=== PATIENT | male | born 1980 | race Asian ===

== ENCOUNTER 2018-08-02 23:55 | Emergency (ER) | payer MEDICAID ==
[~2018-08-02 23:55] MED LIST: ATIVAN1 MG PO; CARAFATE1 GM/10 ML PO; LORAZEPAM 0.50.5 MG PO; ONDANSETRON HCL4 M2 PO; PRILOSEC 20 MG20 MG PO; RANITIDINE 150150 M1 PO; TRAZODONE HCL100 MG PO; VITAMIN B-1100 M1 PO
[2018-08-03 00:35] LABS: ABSOLUTE BASOPHILS 0.1 thou/uL (0.0-0.2); ABSOLUTE EOSINOPHILS 0.1 thou/uL (0.0-0.7); ABSOLUTE LYMPHOCYTES 2.6 thou/uL (0.8-5.3); ABSOLUTE MONOCYTES 0.5 thou/uL (0.0-1.2); ABSOLUTE NEUTROPHILS 2.8 thou/uL (1.6-8.1); BASOPHILS 1.3 %; EOSINOPHILS 1.9 %; HEMATOCRIT 38.6 % (42.0-52.0); HEMOGLOBIN 13.1 gm/dL (14.0-18.0); LYMPHOCYTES 42.4 %; MCH 32.1 pg (26.0-34.0); MCHC 33.9 g/dL (28.0-37.0); MCV 94.7 fL (80.0-100.0); MONOCYTES 8.5 %; MPV 8.8 fl. (7.2-11.1); NUCLEATED RBCS 0 /100WBC; PLATELET COUNT* 270 thou/uL (150-400); POLYS 45.9 %; RBC 4.07 mil/uL (4.50-6.00); RDW-CV 17.2 % (10.5-14.5); WBC 6.1 thou/uL (4.0-11.0)
[2018-08-03 00:44] LABS: CALCIUM 8.2 mg/dL (8.5-10.1); CREATININE 0.4 mg/dL (0.6-1.3); POTASSIUM 5.3 mmol/L (3.5-5.1)
[2018-08-03 00:49] LABS: ALBUMIN 3.6 g/dL (3.4-5.0); TOTAL BILIRUBIN 0.3 mg/dL (<0.1-1.0); TOTAL PROTEIN 8.1 g/dL (6.4-8.2)
[2018-08-03 00:50] LABS: SALICYLATE 3.1 mg/dL (2.8-20.0)
[2018-08-03 00:52] LABS: ACETAMINOPHEN < 2 ug/mL (10-30)
[2018-08-03 00:53] LABS: ALCOHOL 426 mg/dL (<10)
[2018-08-03 05:30] LABS: URINE BILIRUBIN NEGATIVE (Negative); URINE BLOOD NEGATIVE (Negative); URINE CLARITY CLEAR; URINE COLOR YELLOW; URINE GLUCOSE-RANDOM NEGATIVE (Negative); URINE KETONES NEGATIVE (Negative); URINE LEUKOCYTES-REFLEX NEGATIVE (Negative); URINE NITRITE-REFLEX NEGATIVE (Negative); URINE PROTEIN NEGATIVE (Negative); URINE SPECIFIC GRAVITY <= 1.005 (1.005-1.030); URINE UROBILINOGEN 0.2 E.U./dl (0.2-1.0)
[2018-08-03 05:45] LABS: AMP/METHAMP Negative (Negative); BARBITURATES Negative (Negative); BENZODIAZEPINES POSITIVE (Negative); COCAINE Negative (Negative); METHADONE Negative (Negative); OPIATES Negative (Negative); PCP Negative (Negative); THC Negative (Negative)
[2018-08-03 09:59] VITALS: BP 102/63
== END 2018-08-03 10:06 | disposition home or self-care (01) ==
LOC: M.ERS 23:55
PROVIDERS: Emergency Medicine
DX: F10.129 Alcohol abuse with intoxication, unspecified (principal); Y90.8 Blood alcohol level of 240 mg/100 ml or more; M79.642 Pain in left hand; Z79.899 Other long term (current) drug therapy

== ENCOUNTER 2020-08-26 21:07 | Inpatient (IN) | payer MEDICAID ==
[~2020-08-26] VITALS: Ht 165.1 cm; Wt 67.3 kg
[2020-08-26 21:08] VITALS: BP 89/42
[2020-08-26 21:38] LABS: ABSOLUTE EOSINOPHILS 0.1 thou/uL (0.0-0.7); ABSOLUTE LYMPHOCYTES 0.4 thou/uL (0.8-5.3); ABSOLUTE MONOCYTES 0.9 thou/uL (0.0-1.2); ABSOLUTE NEUTROPHILS 3.2 thou/uL (1.6-8.1); BASOPHILS 0.7 %; HEMATOCRIT 29.5 % (42.0-52.0); LYMPHOCYTES 9.3 %; MCH 30.8 pg (26.0-34.0); MCHC 34.1 g/dL (28.0-37.0); MCV 90.5 fL (80.0-100.0); MONOCYTES 18.5 %; MPV 6.7 fl. (7.2-11.1); NUCLEATED RBCS 0 /100WBC; PLATELET COUNT* 297 thou/uL (150-400); POLYS 68.5 %; RBC 3.26 mil/uL (4.50-6.00); RDW-CV 14.7 % (10.5-14.5); WBC 4.6 thou/uL (4.0-11.0)
[2020-08-26 21:45] LABS: CALCIUM 8.2 mg/dL (8.5-10.1); CREATININE 0.7 mg/dL (0.6-1.3); POTASSIUM 3.4 mmol/L (3.5-5.1)
[2020-08-26 21:56] LABS: ALBUMIN 3.4 g/dL (3.4-5.0); TOTAL BILIRUBIN 0.2 mg/dL (<0.1-1.0); TOTAL PROTEIN 7.1 g/dL (6.4-8.2)
[2020-08-27] VITALS (7 sets, daily range): BP systolic 89–112; BP diastolic 51–79
[2020-08-27 04:00] LABS: URINE BILIRUBIN NEGATIVE (Negative); URINE BLOOD NEGATIVE (Negative); URINE CLARITY CLEAR; URINE COLOR YELLOW; URINE GLUCOSE-RANDOM NEGATIVE (Negative); URINE KETONES NEGATIVE (Negative); URINE LEUKOCYTES-REFLEX NEGATIVE (Negative); URINE NITRITE-REFLEX NEGATIVE (Negative); URINE PROTEIN NEGATIVE (Negative); URINE UROBILINOGEN 0.2 E.U./dl (0.2-1.0)
--- NOTE | 2020-08-27 09:37 | EKG ---
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 : 1980 Requested By: Girma Gonzalez Order Number: [id number] MD: Bret Meier Measurements Intervals [place] Rate: 79 P: 9 [place]: 156 QRS: 1 QRSD: 103 T: 24 QT: 378 QTc: 434 Interpretive Statements Sinus rhythm Diffuse ST segment elevation, consider pericarditis Compared to ECG 08/14/2017 11:20:31 ST (T wave) deviation now present Sinus tachycardia no longer present Electronically Signed On 08-27-2020 9:37:05 HYPERION ANALYST by Bret Meier [email or web address] <ELECTRONICALLY SIGNED> By: Bret Meier MD, FACC 08/27/20936 19 19 Bret Meier MD, FACC /EPI
[2020-08-27 10:10] LABS: HEMATOCRIT 33.3 % (42.0-52.0); HEMOGLOBIN 11.2 gm/dL (14.0-18.0); MCH 30.6 pg (26.0-34.0); MCHC 33.6 g/dL (28.0-37.0); MPV 6.9 fl. (7.2-11.1); RBC 3.66 mil/uL (4.50-6.00); WBC 7.4 thou/uL (4.0-11.0)
[2020-08-27 10:19] LABS: CALCIUM 8.7 mg/dL (8.5-10.1); CREATININE 0.6 mg/dL (0.6-1.3); POTASSIUM 4.9 mmol/L (3.5-5.1)
--- NOTE | 2020-08-27 12:10 | NUR ---
ER ADMIT TO 224 TELEPHONE REPORT GIVEN PRIOR TO ARRIVAL PATIENT TO BED SBA DENIES PAIN INSTRUCTED TO CALL FOR ASSISTANCE AND SHOWN HOW TO USE CALL LIGHT
[2020-08-27] MEDS ORDERED: NEURONTIN100 MG PO (13:36)
[2020-08-27] MEDS ORDERED: SERTRALINE HCL100 MG PO (13:37)
[2020-08-27 21:34] LABS: CALCIUM 8.7 mg/dL (8.5-10.1); CREATININE 0.8 mg/dL (0.6-1.3); POTASSIUM 4.1 mmol/L (3.5-5.1)
[2020-08-28] VITALS: BP 117/78
--- NOTE | 2020-08-28 02:01 | NUR ---
PATIENT ALERT, SOMEWHAT ANXIOUS AND ORIENTED X 4. USING URINAL AT BEDSIDE WITH LARGE RETURN. EATING SOFT SNACKS WITHOUT ISSUE AND FLUIDS WITHOUT PROBLEM. WAS SO HAPPY TO HAVE HOME MEDS STARTED AND THEN STATES HE TAKES SEROQUEL WELL. UNABLE TO CONFIRM THIS. PLAN OF CARE WITH RECONCILE MEDS AGAIN IN AM WITH PHYSICIAN. TYLENOL FOR HEADACHE AND BENADRYL FOR SLEEP. IV ATIVAN X 2 FOR ANXIETY OF THIS WRITING. STAT LAB THIS EVENING WITH SODIUM NOW 140. VITAL SIGNS STABLE. ON ROOM AIR. NEW IVF'S INITIATED VIA RIGHT PORT. CONTINUE TO MONITOR.
[2020-08-28 04:00] VITALS: BP 120/80
[2020-08-28 05:42] LABS: HEMOGLOBIN 9.4 gm/dL (14.0-18.0); MCH 30.7 pg (26.0-34.0); MCHC 33.5 g/dL (28.0-37.0); MCV 91.7 fL (80.0-100.0); MPV 7.5 fl. (7.2-11.1); RBC 3.06 mil/uL (4.50-6.00); RDW-CV 14.9 % (10.5-14.5); WBC 6.7 thou/uL (4.0-11.0)
[2020-08-28 06:05] LABS: ALBUMIN 3.1 g/dL (3.4-5.0); CALCIUM 8.3 mg/dL (8.5-10.1); CREATININE 0.8 mg/dL (0.6-1.3); MAGNESIUM 2.1 mg/dL (1.8-2.4); POTASSIUM 3.6 mmol/L (3.5-5.1); TOTAL BILIRUBIN 0.3 mg/dL (<0.1-1.0); TOTAL PROTEIN 6.6 g/dL (6.4-8.2)
--- NOTE | 2020-08-28 06:20 | NUR ---
LORAZEPAM PROVIDED A THIRD TIME FOR THE SHIFT. NO OTHER CHANGES FROM EARLIER ENTRY. CONTINUE TO MONITOR.
[2020-08-28 08:45] VITALS: BP 127/77
--- NOTE | 2020-08-28 11:37 | NUR ---
PT A/OX4, CIWA 3. DENIES PAIN, SOA, AND ANY OTHER DISCOMFORT. PT STATES "I UNDERSTAND WHY I WAS ADMITTED. BUT I'M NOT SICK SO I'D RATHER LEAVE." DR SANCHEZ WAS NOTIFIED OF PTS REQUEST, SAW PT AT BEDSIDE. PT MAINTAINED HIS DESIRE TO LEAVE. DR SANCHEZ EXPLAINED HER PREFERENCE THAT HE STAY ANOTHER NIGHT, PT DECLINED. DR SANCHEZ STATED PT MAY LEAVE AMA BUT SHE WAS NOT COMFORTABLE MEDICALLY DISCHARGING HIM DUE TO HIS ATIVAN NEEDS OVER THE LAST 24 HOURS. PT SIGNED AMA DISCHARGE FORM AFTER THIS RN EXPLAINED RISKS OF LEAVING AMA AND BENEFITS OF STAYING. R CHEST PORT-A-CATH DEACCESSED AND DRESSED. TELE MONITOR RETURNED TO NURSING STATION. ALL PERSONAL BELONGINGS ACCOUNTED FOR PER PT. PT ESCORTED TO EXIT ON FOOT BY ENVIRONMENTAL PROGRAMS SPECIALIST.
[2020-08-29] MEDS ORDERED: SEROQUEL 100 M100 M1 PO ×2 (15:18→15:19)
[2020-08-29] MEDS ORDERED: GABAPENTIN600 M1 PO (15:20)
== END 2020-08-28 11:30 | disposition left against medical advice (07) | DRG 640 ==
LOC: M.ERS 21:07 → M.TBA-ER 23:26 → M.2W 08-27 12:10
PROVIDERS: Emergency Medicine Emergency Medical Services; Internal Medicine; ADMIT Internal Medicine; ATTEND Internal Medicine
DX: E87.1 Hypo-osmolality and hyponatremia (principal); G92 Toxic encephalopathy; F10.129 Alcohol abuse with intoxication, unspecified; Y90.9 Presence of alcohol in blood, level not specified; Z20.828 Contact with and (suspected) exposure to other viral communicable diseases; Z87.891 Personal history of nicotine dependence; Z28.21 Immunization not carried out because of patient refusal

== ENCOUNTER 2020-08-28 18:39 | Inpatient (IN) | payer MEDICAID ==
[~2020-08-28] VITALS: Ht 170.2 cm; Wt 66.5 kg
[~2020-08-28 18:39] MED LIST changes: +NEURONTIN100 MG PO; +SERTRALINE HCL100 MG PO
[2020-08-28 19:55] VITALS: BP 105/76
[2020-08-28 20:49] LABS: URINE BILIRUBIN NEGATIVE (Negative); URINE BLOOD NEGATIVE (Negative); URINE CLARITY CLEAR; URINE COLOR YELLOW; URINE GLUCOSE-RANDOM NEGATIVE (Negative); URINE KETONES NEGATIVE (Negative); URINE LEUKOCYTES-REFLEX NEGATIVE (Negative); URINE NITRITE-REFLEX NEGATIVE (Negative); URINE PROTEIN NEGATIVE (Negative); URINE UROBILINOGEN 0.2 E.U./dl (0.2-1.0)
[2020-08-28 21:38] LABS: ABSOLUTE EOSINOPHILS 0.2 thou/uL (0.0-0.7); ABSOLUTE LYMPHOCYTES 0.8 thou/uL (0.8-5.3); ABSOLUTE MONOCYTES 0.8 thou/uL (0.0-1.2); ABSOLUTE NEUTROPHILS 4.6 thou/uL (1.6-8.1); BASOPHILS 0.7 %; EOSINOPHILS 2.5 %; HEMATOCRIT 25.3 % (42.0-52.0); HEMOGLOBIN 8.6 gm/dL (14.0-18.0); LYMPHOCYTES 11.8 %; MCH 31.2 pg (26.0-34.0); MCHC 34.1 g/dL (28.0-37.0); MCV 91.5 fL (80.0-100.0); MONOCYTES 12.3 %; MPV 6.7 fl. (7.2-11.1); NUCLEATED RBCS 0 /100WBC; PLATELET COUNT* 258 thou/uL (150-400); POLYS 72.7 %; RBC 2.77 mil/uL (4.50-6.00); RDW-CV 14.7 % (10.5-14.5); WBC 6.4 thou/uL (4.0-11.0)
[2020-08-28 21:50] LABS: CALCIUM 7.8 mg/dL (8.5-10.1); CREATININE 0.6 mg/dL (0.6-1.3); POTASSIUM 3.2 mmol/L (3.5-5.1); TOTAL BILIRUBIN 0.3 mg/dL (<0.1-1.0); TOTAL PROTEIN 6.4 g/dL (6.4-8.2)
[2020-08-28 22:26] LABS: AMP/METHAMP Negative (Negative); BARBITURATES Negative (Negative); BENZODIAZEPINES POSITIVE (Negative); COCAINE Negative (Negative); METHADONE Negative (Negative); OPIATES Negative (Negative); PCP Negative (Negative); THC POSITIVE (Negative)
[2020-08-29] VITALS (8 sets, daily range): BP systolic 100–123; BP diastolic 62–85
[2020-08-29 03:52] LABS: ABSOLUTE EOSINOPHILS 0.2 thou/uL (0.0-0.7); ABSOLUTE LYMPHOCYTES 0.5 thou/uL (0.8-5.3); ABSOLUTE MONOCYTES 0.6 thou/uL (0.0-1.2); ABSOLUTE NEUTROPHILS 2.5 thou/uL (1.6-8.1); EOSINOPHILS 5.4 %; HEMATOCRIT 25.4 % (42.0-52.0); HEMOGLOBIN 8.6 gm/dL (14.0-18.0); LYMPHOCYTES 13.8 %; MCH 30.6 pg (26.0-34.0); MCHC 33.7 g/dL (28.0-37.0); MONOCYTES 14.5 %; MPV 6.5 fl. (7.2-11.1); NUCLEATED RBCS 0 /100WBC; PLATELET COUNT* 263 thou/uL (150-400); POLYS 65.3 %; RDW-CV 14.8 % (10.5-14.5); WBC 3.9 thou/uL (4.0-11.0)
[2020-08-29 04:06] LABS: CALCIUM 7.9 mg/dL (8.5-10.1); CREATININE 0.6 mg/dL (0.6-1.3); POTASSIUM 3.7 mmol/L (3.5-5.1)
[2020-08-29 04:11] LABS: ALBUMIN 2.9 g/dL (3.4-5.0); TOTAL BILIRUBIN 0.4 mg/dL (<0.1-1.0)
[2020-08-29 09:08] LABS: MCH 31.1 pg (26.0-34.0); MCHC 34.5 g/dL (28.0-37.0); MCV 90.1 fL (80.0-100.0); MPV 6.5 fl. (7.2-11.1); RBC 2.89 mil/uL (4.50-6.00); RDW-CV 14.8 % (10.5-14.5); WBC 3.5 thou/uL (4.0-11.0)
--- NOTE | 2020-08-29 10:50 | EKG ---
[place] [address] ELECTROCARDIOGRAM REPORT Name: SONALI ALFORD Room: [place] [address] ADM IN .R.#: [id number] Admission: 08/28/20 Attend Phys: Mainor Aguirre, Discharge: Date of : 76 Date of Service: 08/28/202131 Report #: [id number] THIS REPORT FOR: //name// [facility] ED Test Date: 2020-08-28 Test Time: 21:32:11 Pat Name: SONALI ALFORD Department: Room: [facility] Gender: M Oim Consultant: ALIZA : 1980 Requested By: Hyun Steinberg Order Number: [id number] MD: Florentino Reyes Measurements Intervals [place] Rate: 65 P: 45 RI: 174 QRS: 50 QRSD: 106 T: 38 QT: 402 QTc: 418 Interpretive Statements Sinus rhythm Baseline wander in lead(s) V1,V2 Compared to ECG 08/26/2020 21:20:22 ST (T wave) deviation no longer present Electronically Signed On 08-29-2020 10:50:08 [employer] by Florentino Reyes [email or web address] <ELECTRONICALLY SIGNED> By: Florentino Reyes MD, FAC 08/29/20 1050 31 31 Florentino Reyes MD, [facility] /EPI
[2020-08-29] MEDS ORDERED: SEROQUEL 100 M100 M1 PO ×2 (15:18→15:19)
[2020-08-29] MEDS ORDERED: GABAPENTIN600 M1 PO (15:20)
--- NOTE | 2020-08-29 18:22 | NUR ---
REPORT RECIEVED FROM ER. ADMISSION DOCUMENTED. PT ORIENTED TO ROOM, CALL LIGHT SHOWN, FALL AGREEMENT WENT OVER, PT STATED UNDERSTANDING. FALL PRECAUTIONS IN PLACE. SEIZURE PRECAUTIONS IN PLACE. PT STATES HE HAS HAD ALCOHOL WITHDRAWL SEIZURES IN THE PAST. PAIN MEDS GIVEN PER E-MAR PER PT REQUEST WITH RELIEF.
[2020-08-30] VITALS (7 sets, daily range): BP systolic 85–117; BP diastolic 53–80
--- NOTE | 2020-08-30 05:02 | NUR ---
PT DID NOT ATTEMPT TO GET UP OUT OF BED ALL NIGHT. GENERALIZED PAIN MANAGED WITH 2MG MORPHINE Q4. NO REPORTS OF ANY PAIN OR NAUSEA. CIWA 0. NO SIGNS OF BLEEDING. SEIZURE PRECAUTIONS MAINTAINED. NPO SINCE MIDNIGHT. RIGHT CHEST PORT A CATH FLUSHING WELL, LAB COLLECTION THIS AM. SEROQUEL ORDERED AT BEDTIME AND FOR 0900. WILL CONTINUE TO MONITOR.
[2020-08-30 05:22] LABS: HEMATOCRIT 28.8 % (42.0-52.0); HEMOGLOBIN 9.7 gm/dL (14.0-18.0); MCH 31.1 pg (26.0-34.0); MCHC 33.8 g/dL (28.0-37.0); MCV 92.1 fL (80.0-100.0); MPV 7.3 fl. (7.2-11.1); RBC 3.13 mil/uL (4.50-6.00); RDW-CV 15.1 % (10.5-14.5); WBC 5.8 thou/uL (4.0-11.0)
[2020-08-30 05:50] LABS: ALBUMIN 2.8 g/dL (3.4-5.0); CALCIUM 8.5 mg/dL (8.5-10.1); CREATININE 0.6 mg/dL (0.6-1.3); MAGNESIUM 1.9 mg/dL (1.8-2.4); POTASSIUM 3.2 mmol/L (3.5-5.1); TOTAL BILIRUBIN 0.3 mg/dL (<0.1-1.0); TOTAL PROTEIN 6.2 g/dL (6.4-8.2)
[2020-08-31 04:44] VITALS: BP 113/75
--- NOTE | 2020-08-31 06:16 | NUR ---
ASSUMED CARE OF PT AFTER REPORT AT 1930. PT A&OX4. VSS. PHYSICAL ASSESSMENT COMPLETED AND CHARTED. PT ON RA. PT TRACING SR ON TELE. PT COMPLAINED OF GENERALIZED BODY PAIN-MED GIVEN PER DEC. CHARTED. PT ABLE TO SLEEP WELL ON BED. CALL LIGHT WITHIN REACH.
[2020-08-31 07:07] LABS: HEMATOCRIT 29.8 % (42.0-52.0); HEMOGLOBIN 9.9 gm/dL (14.0-18.0); MCH 30.7 pg (26.0-34.0); MCHC 33.2 g/dL (28.0-37.0); MCV 92.6 fL (80.0-100.0); MPV 7.4 fl. (7.2-11.1); RBC 3.22 mil/uL (4.50-6.00); RDW-CV 15.2 % (10.5-14.5); WBC 3.2 thou/uL (4.0-11.0)
[2020-08-31 07:22] LABS: ALBUMIN 3.1 g/dL (3.4-5.0); CALCIUM 8.9 mg/dL (8.5-10.1); CREATININE 0.7 mg/dL (0.6-1.3); MAGNESIUM 1.9 mg/dL (1.8-2.4); POTASSIUM 3.9 mmol/L (3.5-5.1); TOTAL BILIRUBIN 0.3 mg/dL (<0.1-1.0); TOTAL PROTEIN 6.8 g/dL (6.4-8.2)
[2020-08-31 07:30] VITALS: BP 113/81
[2020-08-31] MEDS ORDERED: GABAPENTIN600 M1 PO (07:31)
[2020-08-31] MEDS ORDERED: SEROQUEL 100 M100 M1 PO ×2 (07:31)
[2020-08-31] MEDS ORDERED: MORPHINE 4MG/ML SYRI IVPUSH (07:31)
[2020-08-31] MEDS ORDERED: HYDROCODON-ACE1 EAC7 PO (07:31)
--- NOTE | 2020-08-31 11:42 | NUR ---
PT. AOX4, VSS, VERBAL WORDS NONCOMPREHENSIBLE AT TIMES, COMMUNICATES ON PAPER. PAIN UNDER CONTROL, CALL LIGHT AND PERSONAL BELONGINGS PLACED WITHIN REACH. PT. REFUSED TO BE TREATED ON RETURN FROM EGD, DECIDED TO LEAVE AMA BUT CHANGED MIND AND STAYED. ON SEIZURE PRECAUTIONS, CIWA SCORE 0. PT. NON COMPLIANT WITH FALL PRECAUTIONS AND REFUSED WEARING TELE MONITOR. PT. IN BED, IN STABLE CONDITION, AT SHIFT CHANGE. DIET WAS ADVANCED TO REGULAR, PUREED AND TOLERATED WITHOUT COMPLICATIONS.
[2020-08-31 12:06] VITALS: BP 113/75
== END 2020-08-31 15:42 | disposition home or self-care (01) | DRG 369 ==
LOC: M.ERS 18:39 → M.TBA-ER 23:25 → M.2W 08-29 14:35
PROVIDERS: Internal Medicine; Nurse Practitioner Family; ADMIT Internal Medicine; ATTEND Internal Medicine
PROC: 0DJ08ZZ Inspection of Upper Intestinal Tract, Via Natural or Artificial Opening Endoscopic (ICD-10-PCS; principal; 2020-08-30)
DX: I85.01 Esophageal varices with bleeding (principal); E87.1 Hypo-osmolality and hyponatremia; K92.0 Hematemesis; E87.6 Hypokalemia; F10.920 Alcohol use, unspecified with intoxication, uncomplicated; F17.210 Nicotine dependence, cigarettes, uncomplicated; F12.90 Cannabis use, unspecified, uncomplicated; D64.9 Anemia, unspecified; I95.9 Hypotension, unspecified; Z20.828 Contact with and (suspected) exposure to other viral communicable diseases; Z59.0 Homelessness; Z53.29 Procedure and treatment not carried out because of patient's decision for other reasons; Z79.899 Other long term (current) drug therapy

== ENCOUNTER 2020-09-20 20:02 | Emergency (ER) | payer MEDICAID ==
[~2020-09-20] VITALS: Ht 160 cm; Wt 65.8 kg
--- NOTE | ~2020-09-20 | EMS ---
[facility] [address] [place] [address] EMS Patient Care Report Name: SONALI ALFORD [id number] Admission: 09/20/20 Attend Phys: Discharge: 09/21/20 Date of : [birth year] Report #: [id number] THIS REPORT FOR: //name// Report Transmitted: 09/24/2020 11:53 EMS Care Summary [facility] [place] [facility] Incident [id number] @ 09/20/2020 19:35 Incident Location [address] [place] [address] [place] [address] Patient Sonali Alford Male, 39 Years 1980 Patient Address [address] [place] [id number] Patient History Alcohol dependence, uncomplicated, Patient Allergies No known allergies, Chief Complaint Alcohol related symptoms Disposition Transported No Lights/[place] Dispatch Reason Falls Transported To [facility] Narrative 314 was dispatched [facility] for a male severely intoxicated. 314 this time looked behind the car wash. Male was sitting between the car wash and a stone wall. Pt was alert and oriented to person, place, time, and event. Pt was cooperative. Pt was complaining of intoxication and right leg pain. Pt stated that he think his right leg might be broken. Pt was instructed to wait right where he was so EMS could clear the cot and move the cot closer. Cot was [facility] [address] [place] [address] EMS Patient Care Report Name: SONALI ALFORD Room: [facility]#: [id number] Admission: 09/20/20 Attend Phys: Discharge: 09/21/20 Date of : [birth year] Report #: [id number] moved right next to pt. Pt was scooting towards the cot using both legs. Pt was assisted onto the cot without any injuries/incidents. Pt was seatbelted onto the cot using all straps. Pt belongings were put on the back of the cot. Pt was loaded into the ambulance without any injuries/incidents. Pt's belongings were sat on the floor. Pt was put on the monitor. Pt vitals were obtained and documented. Pt was stating that his right leg was sore. Pt was moving his right leg. Pt gave demographic information to medic. En route pt was cooperative. Pt vitals were obtained and documented. Pt was talking and showing signs of maintaining his own airway. Pt skin was moist, warm, and normal appearance. Pt admitted to drinking all day starting around 8am. Pt admitted he was drinking beer and liquor. Pt rested comfortably on the cot. At destination pt was cooperative. Pt was unhooked from the monitor. Pt was unloaded from the ambulance without any injuries/incidents. Pt was escorted on the cot to ER 3 without any injuries/incidents. Pt was unbuckled from the cot and transferred to the hospital bed without any injuries/incidents. Pt report was given to nurse. Pt care was transferred to the nurse. Pt belongings were set on the floor by the hospital bed. Initial Vitals @19:47Pain: 0/10, @19:47SpO2: 99, @19:50SpO2: 98, @19:55SpO2: 97, @20:00SpO2: 98, @19:47P: 90,R: 17,BP: 141/87, @19:47GCS: 15, Assessments @19:47MENTAL:SKIN:HEENT:LUNG SOUNDS:ABDOMEN:PELVIS//GI:EXTREMITIES:PULSE:NEURO: Impression Alcohol use Timeline 19:35,Call Received 19:35,Dispatch Notified 19:35,Psap Call 19:35,Dispatched 19:35,En Route 19:45,On Scene 19:47,At Patient 19:47,BP: / M,PULSE: ,RR: R,SPO2: Ox,ETCO2: ,BG: ,PAIN: 0,GCS: , 19:47,BP: / M,PULSE: ,RR: R,SPO2: 99 Ox,ETCO2: ,BG: ,PAIN: ,GCS: , 19:47,BP: 141/87 M,PULSE: 90,RR: 17 R,SPO2: Ox,ETCO2: ,BG: ,PAIN: ,GCS: , [place] [address] EMS Patient Care Report Name: SONALI ALFORD Room: [facility]#: [id number] Admission: 09/20/20 Attend Phys: Discharge: 09/21/20 Date of : [birth year] Report #: [id number] 19:47,BP: / M,PULSE: ,RR: R,SPO2: Ox,ETCO2: ,BG: ,PAIN: ,GCS: 15, 19:49,Depart Scene 19:50,BP: / M,PULSE: ,RR: R,SPO2: 98 Ox,ETCO2: ,BG: ,PAIN: ,GCS: , 19:55,BP: / M,PULSE: ,RR: R,SPO2: 97 Ox,ETCO2: ,BG: ,PAIN: ,GCS: , 20:00,BP: / M,PULSE: ,RR: R,SPO2: 98 Ox,ETCO2: ,BG: ,PAIN: ,GCS: , 20:00,At Destination 20:08,Call Closed Disclaimer v1.1 Copyright 2020 Sold This EMS Care Summary contains data elements from the applicable legal record (which may be displayed differently). It is designed to provide pertinent information for the following purposes: continuity of care, clinical quality, and state data reporting. The complete legal record is available to ED staff and administrators of the receiving hospital in [employer] Patient Tracker. All data is provided "as is."
[~2020-09-20 20:02] MED LIST changes: +GABAPENTIN600 M1 PO; +HYDROCODON-ACE1 EAC7 PO; +MORPHINE 4MG/ML SYRI IVPUSH; +SEROQUEL 100 M100 M1 PO
[2020-09-20 21:13] LABS: ABSOLUTE EOSINOPHILS 0.1 thou/uL (0.0-0.7); ABSOLUTE LYMPHOCYTES 0.7 thou/uL (0.8-5.3); ABSOLUTE MONOCYTES 0.9 thou/uL (0.0-1.2); ABSOLUTE NEUTROPHILS 7.1 thou/uL (1.6-8.1); BASOPHILS 0.4 %; EOSINOPHILS 0.7 %; HEMATOCRIT 30.3 % (42.0-52.0); LYMPHOCYTES 8.2 %; MCH 29.9 pg (26.0-34.0); MCV 90.6 fL (80.0-100.0); MONOCYTES 10.2 %; MPV 7.3 fl. (7.2-11.1); NUCLEATED RBCS 0 /100WBC; PLATELET COUNT* 344 thou/uL (150-400); POLYS 80.5 %; RBC 3.34 mil/uL (4.50-6.00); RDW-CV 15.9 % (10.5-14.5); WBC 8.8 thou/uL (4.0-11.0)
[2020-09-20 21:17] LABS: CALCIUM 7.9 mg/dL (8.5-10.1); CREATININE 0.6 mg/dL (0.6-1.3); POTASSIUM 3.3 mmol/L (3.5-5.1)
[2020-09-20 21:21] LABS: ALBUMIN 3.4 g/dL (3.4-5.0); TOTAL BILIRUBIN 0.2 mg/dL (<0.1-1.0); TOTAL PROTEIN 7.2 g/dL (6.4-8.2)
[2020-09-21 01:50] VITALS: BP 99/63
== END 2020-09-21 01:50 | disposition home or self-care (01) ==
LOC: M.ERS 20:02
PROVIDERS: Emergency Medicine
DX: S80.211A Abrasion, right knee, initial encounter (principal); F10.129 Alcohol abuse with intoxication, unspecified; Y90.8 Blood alcohol level of 240 mg/100 ml or more; K14.0 Glossitis; F17.210 Nicotine dependence, cigarettes, uncomplicated; Z79.899 Other long term (current) drug therapy; W01.0XXA Fall on same level from slipping, tripping and stumbling without subsequent striking against object, initial encounter; Y93.89 Activity, other specified; Y92.89 Other specified places as the place of occurrence of the external cause; Y99.8 Other external cause status